=== PATIENT | female | born 1985 | race African-American/Black ===

== ENCOUNTER 2017-01-20 11:19 | Emergency (ER) | payer SELFPAY ==
--- NOTE | 2017-01-26 15:59 | ER ---
ADMIT: 01/20/2017 RM/LOC: ER [facility] MR#: [id number] [address] [id number] LALY SANTIAGO [address] [place] [id number] Emergency Room Report SEX: F AGE: 31 : 1985 DATE: 01/20/2017 ADDENDUM: This patient comes to the ER because she says she has a bladder infection. She has dysuria, urgency, and frequency. She is tender above the pubic symphysis. No tender to percussion or guarding. Denies any vomiting, but is nauseated and no fevers. Her urinalysis was negative for leukocyte esterase or nitrites. However due to the symptoms, the patient had with the dysuria and having several UTIs in the past, I did write a prescription for Pyridium and Bactrim; however, when the nurse went to discharge the patient, she was very upset because we were not doing anything about a retained tampon that she felt that she had. She never told me about retained tampon or the nurse. When I went back in to discuss it with her, she had walked out of the ER. DIAGNOSIS: Dysuria. Please see my T-sheet. JAKE Constantino / Bay Mora MD / amanadl JOB #: [id number] CC: Bay Mora MD, Attending Physician Evin Lambert MD, Family Physician
== END 2017-01-20 13:30 | disposition left against medical advice (07) ==
LOC: ER 11:19
DX: N39.0 Urinary tract infection, site not specified (principal); J45.909 Unspecified asthma, uncomplicated; R30.0 Dysuria; Z90.89 Acquired absence of other organs; Z79.899 Other long term (current) drug therapy; Z88.6 Allergy status to analgesic agent